=== PATIENT | female | born 2000 | race Two or more races ===

== ENCOUNTER 2022-02-21 17:36 | Emergency (ER) | payer MEDICAID, OTHER ==
[~2022-02-21] VITALS: Ht 167.6 cm; Wt 91.0 kg
[2022-02-21 20:01] LABS: Urine Bacteria NONE SEEN /hpf (None Seen); Urine Blood Negative /uL (Negative); Urine Specific Gravity 1.004 (1.001-1.035); Urine WBC <1 /hpf (0 - 5)
[2022-02-21 21:26] LABS: Basophils # (auto) 0.2 10 ^3/uL (0-0.2); Basophils % (auto) 2.1 % (0.0-2.0); Eosinophils # (auto) 0.1 10 ^3/uL (0-0.8); Eosinophils % (auto) 0.7 % (0.0-7.0); Hematocrit 40.3 % (36.0-46.0); Hemoglobin 13.8 g/dL (12.2-16.2); Lymphocytes # (auto) 2.6 10 ^3/uL (0.4-5.4); Lymphocytes % (auto) 24.2 % (10.0-50.0); Mean Corpuscular Hgb Conc. 34.2 g/dL (32.0-36.0); Mean Corpuscular Volume 90.7 fL (80.0-100.0); Monocytes # (auto) 0.5 10 ^3/uL (0-1.3); Monocytes % (auto) 4.6 % (0.0-12.0); Neutrophils # (auto) 7.3 10 ^3/uL (1.6-8.6); Neutrophils % (auto) 68.4 % (37.0-80.0); Red Blood Cells 4.44 10^6/uL (4.0-5.20); Red Cell Distribution Width 13.3 % (11.8-14.3); White Blood Cell 10.7 10^3/uL (4.4-10.8)
[2022-02-21 21:30] LABS: Albumin 3.8 g/dL (3.4-5.0); BUN/Creatinine Ratio 9.4; Calcium 8.9 mg/dL (8.5-10.1); Potassium 4.2 mmol/L (3.5-5.1)
[2022-02-21 21:33] LABS: Bilirubin, Total 0.3 mg/dL (0.2-1.0); Total Protein 8.2 g/dL (6.4-8.2)
[2022-02-21 21:56] VITALS: BP 99/59
== END 2022-02-21 21:59 | disposition home or self-care (01) ==
LOC: ER 17:36
DX: R10.9 Unspecified abdominal pain (principal); R30.0 Dysuria; Z90.89 Acquired absence of other organs
CPT/HCPCS: 36415; 74176; 80053; 81001; 85025

== ENCOUNTER 2022-07-12 20:48 | Emergency (ER) | payer MEDICAID ==
[~2022-07-12] VITALS: Ht 167.6 cm; Wt 99.2 kg
[2022-07-12 21:14] VITALS: BP 118/82
[2022-07-12 21:37] LABS: Urine Bacteria FEW /hpf (None Seen); Urine Blood Negative /uL (Negative); Urine Specific Gravity 1.017 (1.001-1.035); Urine WBC 6 /hpf (0 - 5)
[2022-07-12 21:45] LABS: Basophils # (auto) 0.1 10 ^3/uL (0-0.2); Basophils % (auto) 0.6 % (0.0-2.0); Eosinophils # (auto) 0.1 10 ^3/uL (0-0.8); Eosinophils % (auto) 1.1 % (0.0-7.0); Hematocrit 41.1 % (36.0-46.0); Hemoglobin 13.7 g/dL (12.2-16.2); Lymphocytes # (auto) 3.6 10 ^3/uL (0.4-5.4); Lymphocytes % (auto) 31.4 % (10.0-50.0); Mean Corpuscular Hemoglobin 30.1 pg (28.0-32.0); Mean Corpuscular Hgb Conc. 33.3 g/dL (32.0-36.0); Mean Corpuscular Volume 90.3 fL (80.0-100.0); Monocytes # (auto) 0.9 10 ^3/uL (0-1.3); Monocytes % (auto) 8.2 % (0.0-12.0); Neutrophils # (auto) 6.6 10 ^3/uL (1.6-8.6); Neutrophils % (auto) 58.7 % (37.0-80.0); Nucleated Red Blood Cells % 0.1 %; Red Blood Cells 4.55 10^6/uL (4.0-5.20); Red Cell Distribution Width 13.8 % (11.8-14.3); White Blood Cell 11.3 10^3/uL (4.4-10.8)
[2022-07-12 22:02] LABS: Albumin 3.8 g/dL (3.4-5.0); Calcium 8.6 mg/dL (8.5-10.1); Potassium 4.2 mmol/L (3.5-5.1)
[2022-07-12 22:05] LABS: BUN/Creatinine Ratio 11.7 (10.0-20.0); Bilirubin, Total 0.3 mg/dL (0.2-1.0); Total Protein 8.4 g/dL (6.4-8.2)
[2022-07-13] MEDS ORDERED: CIPR-173 PO (01:19)
== END 2022-07-13 05:05 | disposition home or self-care (01) ==
LOC: ER 20:54
DX: N39.0 Urinary tract infection, site not specified (principal); R10.2 Pelvic and perineal pain; Z87.440 Personal history of urinary (tract) infections
CPT/HCPCS: 36415; 74176; 80053; 81001; 84702; 85025; 87086